=== PATIENT | male | born 1955 | race Caucasian/White ===

== ENCOUNTER 2021-07-14 11:26 | Outpatient (CLI) | payer BC, SELFPAY ==
[2021-07-14 13:09] LABS: Basophils Percent Auto 0.5 % (0.2-1.2); Eosinophils Absolute Auto 0.1 K/mm3 (0-0.3); Eosinophils Percent Auto 2.2 % (0-4.4); Hemoglobin 13.4 g/dL (14.0-18.0); Immature Granulocyte Absolute 0.01 K/mm3 (0.00-0.031); Immature Granulocyte Percent A 0.2 % (0-0.5); Lymphocytes Absolute Auto 2.19 K/mm3 (0.9-3.2); Lymphocytes Percent Auto 34.4 % (18.3-44.2); Mean Corpuscular HGB Conc 34.4 g/dl (32-36); Mean Corpuscular Hemoglobin 31.5 pg (26-34); Mean Corpuscular Volume 91.5 fl (80-100); Mean Platelet Volume 9.4 fl (7.4-10.4); Monocytes Absolute Auto 0.6 K/mm3 (0.1-0.6); Monocytes Percent Auto 8.9 % (2.6-8.5); Neutrophils Absolute Auto 3.4 K/mm3 (1.3-6.7); Neutrophils Percent Auto 53.8 % (45.5-73.1); Platelet Count Result 236 k/mm3 (150-375); Red Blood Count 4.26 M/mm3 (4.6-6.20); Red Cell Distribution Width 12.7 % (11.5-14.5); White Blood Count 6.4 K/mm3 (4.5-10.0)
[2021-07-14 13:18] LABS: Hemoglobin A1C 5.2 % (<5.7)
[2021-07-14 13:26] LABS: Albumin Level 4.6 g/dL (3.5-5.1); Anion Gap 10 mmol/L (8-16); Blood Urea Nitrogen 19 mg/dL (9-20); Calcium 9.2 mg/dL (8.4-10.2); Carbon Dioxide 24 mmol/L (22-30); Chloride 105 mmol/L (98-107); Estimated Glomerular Filt Rate > 60; Glucose 94 mg/dL (65-110); Potassium 4.1 mmol/L (3.4-5.0); Sodium 139 mmol/L (137-145)
[2021-07-14 13:56] LABS: Urine Cotinine NEGATIVE
== END 2021-07-14 11:27 | disposition home or self-care (01) ==
LOC: ANHSURGERY 11:30
PROVIDERS: PCP Family Medicine; Visit Provider Orthopaedic Surgery
DX: M17.12 Unilateral primary osteoarthritis, left knee (principal); Z01.818 Encounter for other preprocedural examination
CPT/HCPCS: 80048; 80307; 82040; 83036; 85025; 87070

== ENCOUNTER 2021-08-02 02:21 | Day surgery (SDC) | payer BC, SELFPAY ==
[2021-07-14 11:35] VITALS: BMI 37.8
--- NOTE | 2021-07-14 12:01 | PC.NURSE ---
Addendum entered by Kristin Childress RN 07/14/21 12:13: IBUPROFEN HOLD 7 DAYS PRE OP Original Note: Report to the Outpatient Waiting Room, entrance under the green pavilion located off [facility], at time _0600 on date 07/28/21 . OR Time: _0730 . - You and your visitor will be asked a series of questions to screen for COVID 19 for your protection. - A mask is required within the hospital. - Only one visitor is allowed at this time. Patient visitors will be guided where to wait when not with patient. Preoperative COVID Testing Requirements: No COVID Test needed if: (proof is required; if not received patient will have Rapid Test prior to entry) - Patient has received COVID Vaccine at least 14 days prior to procedure date or - Patient has positive COVID test result within last 90 days of surgery date. COVID Test needed if above criteria is not met If not COVID vaccinated a COVID test must be conducted within 72 hours of surgery and patient is asked to isolate self from time of testing until procedure. You will go to the [facility] for your COVID testing. The [facility] site is located at the corner of [address] [facility]. You will only be called if COVID results are positive and your surgeon may reschedule your elective surgery date. Patients may have clear liquids (water, carbonated beverages, clear teas, apple juice) until 3 hours prior to surgery with a maximum of 20 ounces. - No food from midnight until time of surgery - Infants may have breast milk until 4 hours before surgery, formula 6 hours prior to surgery. - Children will be allowed to drink immediately following surgery. If applicable, please bring a bottle or sippy cup to assist with drinking. Juice, water, soda, and popsicles are readily available. For infants on formula, please bring formula the day of surgery. Pacifiers are allowed. Take the following medications with a SIP of water the morning of surgery: ___NONE Medications to discontinue per physician _ALL VITAMINS AND SUPPLEMENT 3 DAYS PRE OP Date to take last dose_07/24/21 Please no make-up, nail kazakh, hairspray, perfume, deodorant, or body powder the day of surgery. No jewelry (including any body piercings) or valuables the day of surgery, leave them at home. Please take a shower or bath the night before, or the morning of, surgery with an antibacterial soap. Wear comfortable, loose fitting clothing. Children are encouraged to wear pajamas. - Jewelry must be removed prior to entering the operating room. Rings and piercings that are not removed may be cut off. - The hospital will not accept responsibility for valuables. - Please leave all valuables, including medications, at home the day of surgery. If you are going home after surgery, a licensed cdl truck driver must drive you home. - NO public transportation without another adult. - We recommend that an adult stay with you for 24 hours following discharge. - We also recommend that you do not drive, make important decision, drink alcoholic beverages, or take any drugs that were not prescribed by your health care provider for at least 24 hours after your discharge time. For Pediatric surgeries, we recommend two adults accompany the child home (only one inside the building at this time). Follow any additional instructions given to you from your surgeon. Telephone instructions given to _PATIENT and asked if any additional questions and then verbalized understanding. Patient advised to call surgeon office or pre surgery nurse liaison [phone] if any additional questions.
[2021-07-14 12:26] VITALS: BP 143/64; PULSE 57; RESP 16; TEMP 36.9; O2SAT 98
--- NOTE | 2021-07-26 14:06 | PM.IMHP ---
H&P: HPI History of Present Illness Date/Time: 07/26/21 14:06 66-year-old male patient of Dr. Antoine who presents today for a left total knee arthroplasty. He underwent right total knee arthroplasty in 2019. He had excellent results and is very happy with the way his knee is feeling. He has been having symptoms in left knee for about 10 years. He has had prior cortisone injections as well as bracing which has not given him satisfactory relief. Patient feels this point we proceed with total knee arthroplasty rather continue nonsurgical treatment. Chief Complaint: Left knee DJD Review of Systems Review of Systems: All systems reviewed & are unremarkable except as noted in HPI and below PMFSH Past Medical History Medical History Family history of carotid artery stenosis Obstructive sleep apnea Surgical History Surgical History History of knee surgery History of repair of rotator cuff Family History Family History Mother Family history of alcoholism Father Cerebrovascular accident Family history of throat cancer Social History Social History Smoking packs per day: 1 Smoking cigarettes per day: 20.0 Years smoked: 30 Smoking pack-years: 30.00 Smoking status: Former smoker Tobacco type: cigarettes Smoking end date: 03/28/21 Additional smoking assessment comments: PAST 5 YEARS SMOKED 5 CIGARETTES PER DAY .DENIES ANY FORM OF TOBACCO USE Spiritual care concerns: No Meds Home Medications and Allergies Home Medications Medication Instructions Recorded Confirmed Type ibuprofen 600 mg PO Q6H PRN 07/14/21 07/14/21 History potassium 99 mg PO PRN PRN 07/14/21 07/14/21 History vitamin B complex [Super B Complex] 1 cap PO DAILY 07/14/21 07/14/21 History Allergies Allergy/AdvReac Type Severity Reaction Status Date / Time No Known Allergies Allergy Verified 07/14/21 11:36 Exam Narrative: 66-year-old male alert pleasant. He is 5 ft 8 and 255 lb. His BMI is 30.8. Left knee range of motion is from 15-105 degrees. Mild effusion. Walks without obvious limp. Minimal tenderness about the left knee. Hip range is full without discomfort on left. Negative Stinchfield maneuver. 1+ pretibial edema bilaterally. He has some venous stasis skin changes in both lower extremities. Reports slight tingling in the bottoms of both feet which she noticed in the last 3 or 4 years. 2+ dorsalis pedis and posterior tibial artery pulse. Resp: Auscultation: clear to auscultation bilaterally Cardio: Rate: regular rate Rhythm: regular rhythm Assessment and Plan Additional Plan 66-year-old male who has severe medial compartment arthritis left knee. Is very happy with his right total knee done in 2019. He feels this point he is ready proceed the left. Surgical procedure as well as the risks and complications were discussed in detail all questions were answered we will see. Patient will see his primary care doctor for pre-surgical clearance. He has also seen Dr. Freire a irrigation district manager. He has been cleared without additional testing. Patient has recently quit smoking in the last several months. He did have a negative cotinine test. But his nasal swab was negative. Hemoglobin is 13.4 platelets 236. Chem panel is all within normal limits, creatinine 0.90. We will plan to use Eliquis for 2 weeks followed by baby aspirin for DVT prophylaxis. We will use extended antibiotics postoperatively due to his weight and recent history of quitting smoking.
--- NOTE | 2021-07-27 13:57 | SUR.PREOP ---
patient contacted by Natalie from Dr Torrez's office and informed case cancelled for 07/28/2021 and was given new surgery date and time
--- NOTE | 2021-07-28 08:18 | PC.NURSE ---
Report to the Outpatient Waiting Room, entrance under the green pavilion located off [facility], at time __0600 on date __08/02/21 . OR Time: 729 . - You and your visitor will be asked a series of questions to screen for COVID 19 for your protection. - A mask is required within the hospital. - Only one visitor is allowed at this time. Patient visitors will be guided where to wait when not with patient. Preoperative COVID Testing Requirements: No COVID Test needed if: (proof is required; if not received patient will have Rapid Test prior to entry) - Patient has received COVID Vaccine at least 14 days prior to procedure date or - Patient has positive COVID test result within last 90 days of surgery date. COVID Test needed if above criteria is not met If not COVID vaccinated a COVID test must be conducted within 72 hours of surgery and patient is asked to isolate self from time of testing until procedure. You will go to the [facility] Testing Site for your COVID testing. The [facility] site is located at the corner of [address] [facility]. You will only be called if COVID results are positive and your surgeon may reschedule your elective surgery date. Patients may have clear liquids (water, carbonated beverages, clear teas, apple juice) until 3 hours prior to surgery with a maximum of 20 ounces. - No food from midnight until time of surgery - Infants may have breast milk until 4 hours before surgery, formula 6 hours prior to surgery. - Children will be allowed to drink immediately following surgery. If applicable, please bring a bottle or sippy cup to assist with drinking. Juice, water, soda, and popsicles are readily available. For infants on formula, please bring formula the day of surgery. Pacifiers are allowed. Take the following medications with a SIP of water the morning of surgery: ____NONE Medications to discontinue per physician ____IBUPROFEN 7 DAYS PRE OP AND VITAMINS 3 DAYS PRE OP Date to take last dose__IBUPROFEN 07/27/21 AND VITAMINS 07/29/21 Please no make-up, nail sami, hairspray, perfume, deodorant, or body powder the day of surgery. No jewelry (including any body piercings) or valuables the day of surgery, leave them at home. Please take a shower or bath the night before, or the morning of, surgery with an antibacterial soap. Wear comfortable, loose fitting clothing. Children are encouraged to wear pajamas. - Jewelry must be removed prior to entering the operating room. Rings and piercings that are not removed may be cut off. - The hospital will not accept responsibility for valuables. - Please leave all valuables, including medications, at home the day of surgery. If you are going home after surgery, a licensed restaurant delivery driver must drive you home. - NO public transportation without another adult. - We recommend that an adult stay with you for 24 hours following discharge. - We also recommend that you do not drive, make important decision, drink alcoholic beverages, or take any drugs that were not prescribed by your health care provider for at least 24 hours after your discharge time. For Pediatric surgeries, we recommend two adults accompany the child home (only one inside the building at this time). Follow any additional instructions given to you from your surgeon. Telephone instructions given to __PATIENT and asked if any additional questions and then verbalized understanding. Patient advised to call surgeon office or pre surgery nurse liaison [phone] if any additional questions.
[2021-08-02] VITALS (13 sets, daily range): BP systolic 105–147; BP diastolic 48–67; PULSE 52–80; RESP 10–22; TEMP 35.9–36.8; O2SAT 93–100; BMI 38.2; BMI 38.1
--- NOTE | ~2021-08-02 | XR_ITS ---
EXAMINATION: XR knee LT 2V DATE: 08/02/2021 11:12 INDICATION: Postoperative evaluation following left total knee arthroplasty. TECHNIQUE: Anteroposterior and lateral views of the left knee were obtained. COMPARISON: None. FINDINGS: Left total knee arthroplasty with patellar resurfacing appears well seated and in near anatomic align ment. No fractures identified. Expected postoperative subcutaneous, intramedullary and intra-articul ar gas. IMPRESSION: 1. Left total knee arthroplasty, negative for postoperative purposes. Reviewed, dictated and finalized at location B. [facility]
[2021-08-02] MEDS: ACETAMINOPHEN 500 MG TABLET 1000 MG PO ×2 (06:29→17:10)
--- NOTE | 2021-08-02 06:59 | P.PNAN_ITS ---
Anes - Initial Pre Proc Eval Procedure: Operation Date: 08/02/21 07:30 Proposed Procedures p Left Total Knee Arthroplasty - Joseph Torrez MD Date/Time: 08/02/21 06:59 Surgeon: Joseph Torrez MD Pre Op Diagnosis: OA left knee Patient Data Age: 66 Gender: M Height: 1.75 m Weight: 116.2 kg Last Vital Signs Temp 36.9 C 07/14/21 12:26 Pulse 57 L 07/14/21 12:26 Resp 16 07/14/21 12:26 BP 143/64 H 07/14/21 12:26 Pulse Ox 98 07/14/21 12:26 Allergies Allergy/AdvReac Type Severity Reaction Status Date / Time No Known Allergies Allergy Verified 08/02/21 06:24 Home Medications Medication Instructions Recorded Confirmed Type ibuprofen 600 mg PO Q6H PRN 07/14/21 08/02/21 History potassium 99 mg PO PRN PRN 07/14/21 08/02/21 History vitamin B complex [Super B Complex] 1 cap PO DAILY 07/14/21 08/02/21 History Patient hx anesthesia problems: none Family hx anesthesia problems: none Results Review: All pre-operative results and documents have been reviewed as part of the pre-operative evaluation. FORMERLY [facility], [facility] Past Medical History Medical History Family history of carotid artery stenosis Obstructive sleep apnea Surgical History Surgical History History of knee surgery History of repair of rotator cuff Family History Family History Mother Family history of alcoholism Father Cerebrovascular accident Family history of throat cancer Social History Social History Smoking packs per day: 1 Smoking cigarettes per day: 20.0 Years smoked: 30 Smoking pack-years: 30.00 Smoking status: Former smoker Tobacco type: cigarettes Smoking end date: 03/28/21 Additional smoking assessment comments: PAST 5 YEARS SMOKED 5 CIGARETTES PER DAY .DENIES ANY FORM OF TOBACCO USE Living arrangements: with family Spiritual care concerns: No Anes - Eval Final PreProcedure Day of Procedure 08/02/21 06:59 Patient weight: obese Heart: regular rate and rhythm Lungs: decreased breath sounds Airway: Mallampati scale class II Neurological: alert and oriented Last oral intake: >/= 8 hours ASA classification: III Emergent: no Anesthetic plan: proceed Anesthesia type and monitoring: general LMA and standard monitoring Results Review: All pre-operative results and documents have been reviewed as part of the pre-operative evaluation. Informed Consent: The patient's anesthetic plan and its attendant risks and benefits were discussed with the patient/family/POA. Questions were solicited and answers provided to the satisfaction of the patient/family/POA.
[2021-08-02] MEDS: TRANEXAMIC ACID 1,000MG/ISO100 1,000 MG/100 ML BAG 200 MG IVPB (07:01)
[2021-08-02] MEDS: LACTATED RINGERS 1,000 ML 30 ML IV CONT ×2 (07:08→12:00)
--- NOTE | 2021-08-02 07:16 | WPDHPUPDATE1 ---
History and Physical Update Update Date/Time: 08/02/21 07:16 History and Physical has been reviewed, including an updated exam of the patient. There are NO changes in the patient's condition. Risks, benefits, and alternatives have been discussed and questions answered. Patient agrees to proceed with procedure.
[2021-08-02] MEDS: ceFAZolin 2 GM/D5W 50 ML 2 GM/50 ML BAG IVPB (07:28)
[2021-08-02] MEDS: ceFAZolin SODIUM 1 GM VIAL 3 GM IRRIGATION (08:11)
[2021-08-02] MEDS: TRANEXAMIC ACID 1,000 MG/10 ML AMPUL 1000 MG IV PUSH (10:10)
[2021-08-02] MEDS: ceFAZolin SODIUM 1 GM VIAL 2 GM IV PUSH (10:23)
--- NOTE | 2021-08-02 10:53 | W.PM.PROC2 ---
Procedure Note - Detailed Date of Procedure 08/02/21 Pre-op Diagnosis OA left knee Post-op Diagnosis same Procedure Performed Left total knee arthroplasty Surgeon Joseph Torrez MD Cad Technician Alexx Anesthesia general Description of Procedure Patient was brought to the operating room and general anesthesia was administered. There is extra difficulty with the procedure due to his obesity with BMI 38.3 and severe flexion contracture of 15? under anesthesia. These factors added at least 30 minutes a time to the procedure. Was also noteworthy that his bone seemed disproportionately soft for a 66-year-old obese male and we will check a bone density test and vitamin-D level and start him on calcium . Patient was given 2 g Ancef 1 g of tranexamic acid weight based vancomycin. Limb was exsanguinated tourniquet elevated to 300 mmHg. A 7 in longitudinal incision was made a standard parapatellar arthrotomy was utilized. Infrapatellar and suprapatellar fat pads were excised a quadriceps synovectomy carried out. Osteophytes removed from around the patella which measured 25 mm in thickness and was cut to 17 mm. Bone quality was fairly good. Next a guide brien was inserted down the femoral canal after aspiration of canal contents using the 5 degree valgus cutting bushing 10 mm of bone removed the distal femur. Next the tibial plateau was cut. We tried to make a skim cut off the low point of the medial tibial plateau. The tibial cut was made perpendicular to the axis of the tibia. As he did not have a significant varus deformity, no additional releases were performed. The knee was quite tight in extension. At 90? of flexion the medial side was a tight 8 mm the lateral side 12 mm. The femoral sizing drill guide was applied and rotation set at 5? of external rotation which matched Whitesides line and posterior referencing pin was replaced. 72.5 cutting block was applied the size he had on the other side and the anterior cut was too far off the anterior cortex and we immediately dropped down to a size 70. AP and chamfer cuts were made. Bone quality was only fair. Seventy fit well was with the appropriate width medial to lateral as well and the knee accepted the 10 mm CR insert in flexion with equal gaps at 90? from the medial compared to lateral sides. The tibia was exposed and I could see that we had not quite cut through the articular cartilage in the posterior aspect of the medial tibial plateau and therefore an additional 1/2 mm of bone approximately was removed from the tibial plateau. We then carefully ensured that the cut was flat tumors no locking on the tray applied the surface. We initially tried the size 79 vanguard tibia but it was too wide at the proper rotational alignment. The 75 was chosen and this was rotated properly relative the medial 1/3 of the tibial tubercle anterior cortex of the tibia and the 2nd metatarsal and this was punched. We trialed and the 11 seemed appropriate with the at 90? but we lacked 20? of extension with no mediolateral play. An additional 2 mm of bone was removed the distal femur and chamfer cuts revisit posterior femoral osteophyte was removed medially and laterally from the femoral condyles and a generous central posterior capsule release was performed. With this done, trialing the 11 insert, the knee still lacked fiber 6? of extension. There was about a mm or 2 of play medially and laterally in this position. The therefore an additional 2 mm of bone removed the distal femur chamfer cuts revisited and with this done the knee came out to full extension with the 11 insert with a negative bounce. The 11 had appropriate stability at 90? the with some play. I felt this would likely be the size that we would choose. We put the tourniquet down at 90 minutes. The patella was sized to the 34. The 37 would overhang either superiorly or inferiorly. The 34 was drilled and a 34 thin composite thickness was 25 mm. Patellar t
[2021-08-02 12:28] LABS: Glucose Point of Care 163 mg/dl (65-105)
--- NOTE | 2021-08-02 12:33 | SUR.PHASEI ---
[id number] sbar faxed floor notified
--- NOTE | 2021-08-02 13:01 | PCOTNOTE ---
Attempted OT evaluation, patient not to room yet, will follow and attempt at later time.
[2021-08-02] MEDS: ONDANSETRON INJ 4 MG/2 ML VIAL IV PUSH ×2 (14:58→18:21)
[2021-08-02] MEDS: oxyCODONE HCL (*CRX) 5 MG TAB IR PO ×3 (15:03→20:02)
[2021-08-02] MEDS: ERGOCALCIFEROL 50,000 UNIT CAPSULE 50000 UNITS PO (16:16)
[2021-08-02] MEDS: SENNA/DOCUSATE SODIUM TABLET 2 TAB PO (16:16)
[2021-08-02] MEDS: WATER FOR IRRIGATION, STERILE 1,000 ML BOTTLE 1000 ML (18:21)
[2021-08-02] MEDS: FAMOTIDINE 20 MG TABLET PO (20:02)
[2021-08-03] MEDS: oxyCODONE HCL (*CRX) 5 MG TAB IR PO ×4 (00:14→12:28)
[2021-08-03] MEDS: ACETAMINOPHEN 500 MG TABLET 1000 MG PO ×3 (00:14→11:27)
[2021-08-03 04:32] VITALS: BP 119/46; PULSE 68; RESP 20; TEMP 36.6; O2SAT 98
--- NOTE | 2021-08-03 06:13 | PM.PNORT ---
Subjective Subjective Date/Time Seen: 08/03/21 06:13 Postop day 1 patient is alert afebrile vital signs are stable. Labs are pending. Patient a bout of vomiting when he 1st got up to the floor yesterday. He has had no vomiting overnight. No nausea this morning. Pain is well controlled. Dressing is intact and dry. Neurovascular is intact. He was up walking with therapy yesterday and has made several trips to the restroom overnight comfortable with ambulation. We will plan to have therapy work with the patient today and plan to discharge home either later this morning or this afternoon. Patient thinks he may want to stay till afternoon therapy is done to make sure that he continues do well. Objective Data Vital Signs Vital Signs: Vital Signs - 24 hr 08/02/21 07:09 08/02/21 11:30 08/02/21 11:45 Temperature 36.7 C Pulse Rate 55 L 66 66 Respiratory Rate 18 13 18 Blood Pressure 111/54 L 117/53 L 113/58 L Pulse Oximetry 99 99 100 08/02/21 12:00 08/02/21 12:15 08/02/21 12:30 Temperature Pulse Rate 62 60 57 L Respiratory Rate 13 12 10 L Blood Pressure 113/48 L 105/51 L 121/54 L Pulse Oximetry 99 96 93 08/02/21 12:45 08/02/21 13:20 08/02/21 13:35 Temperature 35.9 C L 36.7 C Pulse Rate 65 52 L 56 L Respiratory Rate 15 16 16 Blood Pressure 115/56 L 147/57 H 131/67 Pulse Oximetry 99 96 97 08/02/21 14:05 08/02/21 14:11 08/02/21 15:05 Temperature 36.2 C L 36.3 C L Pulse Rate 56 L 60 Respiratory Rate 16 18 Blood Pressure 139/65 112/57 L Pulse Oximetry 96 93 94 08/02/21 20:38 08/03/21 04:32 Temperature 36.8 C 36.6 C Pulse Rate 80 68 Respiratory Rate 22 H 20 Blood Pressure 110/51 L 119/46 L Pulse Oximetry 96 98 Intake/Output Intake/Output: Intake & Output 07/31/21 08/01/21 08/02/21 08/03/21 23:59 23:59 23:59 23:59 Intake Total 1830 290 Output Total 350 800 Balance 1480 -510 Meds/Results Medications: Active Medications Generic Name Dose Route Start Last Admin Trade Name Freq PRN Reason Stop Dose Admin Acetaminophen 1,000 mg 08/02/21 18:00 08/03/21 05:16 Acetaminophen 500 Mg Tablet PO 1,000 mg Q6H ANTONIA Administration Apixaban 2.5 mg 08/03/21 09:00 Apixaban 2.5 Mg Tablet PO 08/14/21 21:01 Q12HR ANTONIA Bisacodyl 10 mg 08/02/21 12:53 Bisacodyl 10 Mg Suppository RECTAL DAILY PRN Constipation Celecoxib 200 mg 08/03/21 09:00 Celecoxib 200 Mg Capsule PO DAILY ANTONIA Cephalexin HCl 500 mg 08/03/21 12:00 Cephalexin 500 Mg Capsule PO Q6HR ANTONIA Diphenhydramine HCl 25 mg 08/02/21 12:53 Diphenhydramine Hcl Inj 50 Mg/Ml Vial IV PUSH Q6H PRN Itching Ergocalciferol 50,000 unit 08/02/21 15:40 08/02/21 16:16 Ergocalciferol 50,000 Unit Capsule PO 50,000 unit Mo@0900 ANTONIA Administration Famotidine 20 mg 08/02/21 21:00 08/02/21 20:02 Famotidine 20 Mg Tablet PO 20 mg Q12HR ANTONIA Administration Vancomycin HCl 1,000 mg in 250 mls @ 250 mls/hr 08/02/21 19:00 08/02/21 21:01 Vancomycin 1,000 Mg/D5w 250 Ml IVPB 08/03/21 07:59 Infused Q12H ANTONIA Infusion Cefazolin Sodium 1 gm in 50 mls @ 100 mls/hr 08/02/21 15:00 08/02/21 23:32 Ancef 1 Gm/D5w 50 Ml Pm IVPB 08/03/21 07:29 Infused Q8H ANTONIA Infusion Magnesium Hydroxide 30 ml 08/02/21 12:53 Magnesium Hydroxide Susp 30 Ml Udc PO BID PRN Constipation Naloxone HCl 0.1 mg 08/02/21 12:53 Naloxone Hcl 0.4 Mg/Ml Vial IV PUSH Q2M PRN Opiate Reversal Ondansetron HCl 4 mg 08/02/21 12:53 08/02/21 18:21 Ondansetron Inj 4 Mg/2 Ml Vial IV PUSH 4 mg Q4H PRN Administration Nausea And Vomiting Oxycodone HCl 5 mg 08/02/21 12:53 Oxycodone Hcl (*Crx) 5 Mg Tab Ir PO Q4H PRN Pain Rated 4-6 Oxycodone HCl 5 mg 08/02/21 13:00 08/03/21 05:16 Oxycodone Hcl (*Crx) 5 Mg Tab Ir PO 5 mg Q4HR ANTONIA Administration Polyethylene Glycol 17 gm 08/03/21 09:00 Polyethylene Glycol 3350 17 Gm Stacy.Marciano
--- NOTE | 2021-08-03 06:15 | PM.DS ---
DS: Admitting Diagnosis Discharge Date 08 03 Admitting Diagnosis left knee DJD DS: Summary Hospital Course Hospital Course: stable Time Spent with Patient Time attestation: Total time spent providing and/or coordinating discharge services: 66-year-old male who underwent left total knee arthroplasty on 08/02. Underwent the procedure without any complications. He did have a bout of vomiting once he got to the floor on the day of surgery. This did pass. He did receive pain medication on empty stomach which may have been the reason or this could have been postanesthesia vomiting. He had had no additional bouts of vomiting after the initial 1. His bones were little soft at times surgery we did order a vitamin D 25 hydroxy.. Morning labs were not done at time of dictation . We will check on vitamin-D as well as labs prior to his discharge. He has a Mepilex dressing over his knee he is weight-bearing as tolerated. He is on Eliquis for DVT prophylaxis. His pain is well controlled on scheduled Tylenol as well as oxycodone 5 mg. He is also on Celebrex 200 mg daily. He is on Senokot and MiraLax for constipation. He will also go home on a 2 week course of Keflex. Patient was advised to keep leg elevated but does exercise on a regular basis. His outpatient therapy starting in [facility] on Monday. The knee was advise any questions or concerns to call the office otherwise we will see him at his appointment date. DS: Data Data Completed and Pending Labs on day of discharge: Labs from last 24 hours 08/02/21 08/02/21 12:15 07:21 POC Capillary Glucose 163 H Blood Type O Positive Antibody Screen Negative Discharge Plan Discharge Patient Disposition: Home, Self-Care Discharge Instructions: JOSEPH TORREZ M.D [facility] [address] [address] POST-OPERATIVE DISCHARGE INSTRUCTIONS TOTAL KNEE ARTHROPLASTY 1. When resting, lie on back with leg elevated above hear to minimize swelling. Significant swelling could indicate a blood clot and if this occurs call the office (or go to the ER) to have a venous ultrasound. 2. Do exercise 5 times a day. 3. Do not sit with leg down except for meals. 4. Wound Care: Nursing will give additional dressings at discharge. Patient to change dressing at home 1 week from surgery, then maintain until seen in office. 5. May shower with dressing in place. 6. patient should limit sitting in a chair with leg hanging down to 20 minutes at a time 4 times a day. Stand Alone Forms: General Discharge Instructions Follow-up/Referrals: Joseph Torrez MD [Physician] - Keep Reg. Scheduled Appt. Discharge Medications: New acetaminophen 500 mg Tablet 1,000 mg PO Q6H Qty: 90 RF: 0 Eliquis 2.5 mg Tablet 2.5 mg PO Q12HR Qty: 27 RF: 0 celecoxib [Celebrex] 200 mg Capsule 200 mg PO DAILY Qty: 30 RF: 0 sennosides-docusate sodium [Senokot-S] 8.6-50 mg Tablet 2 tab-cap PO BID Qty: 60 RF: 0 cephalexin 500 mg Capsule 500 mg PO Q6HR Qty: 44 RF: 0 polyethylene glycol 3350 [Miralax] 17 gram Powder In Packet 17 g PO QAM Qty: 30 RF: 0 ergocalciferol (vitamin D2) [Vitamin D2] 1,250 mcg (50,000 unit) Capsule 50,000 unit PO Mo@0900 Qty: 8 RF: 0 oxycodone 5 mg Tablet 5 mg PO Q4HR Qty: 40 RF: 0 Continued vitamin B complex Capsule 1 cap PO DAILY RF: 0 Discontinued potassium 99 mg Tablet 99 mg PO PRN PRN (Reason: LEG CRAMPS) RF: 0 ibuprofen 600 mg Tablet 600 mg PO Q6H PRN (Reason: Pain) RF: 0
[2021-08-03 06:50] LABS: Basophils Percent Auto 0.1 % (0.2-1.2); Eosinophils Percent Auto 0.3 % (0-4.4); Hematocrit 33.3 % (42.0-52.0); Hemoglobin 11.3 g/dL (14.0-18.0); Immature Granulocyte Absolute 0.03 K/mm3 (0.00-0.031); Immature Granulocyte Percent A 0.3 % (0-0.5); Lymphocytes Absolute Auto 1.76 K/mm3 (0.9-3.2); Lymphocytes Percent Auto 15.5 % (18.3-44.2); Mean Corpuscular HGB Conc 33.9 g/dl (32-36); Mean Corpuscular Hemoglobin 31.1 pg (26-34); Mean Corpuscular Volume 91.7 fl (80-100); Mean Platelet Volume 9.4 fl (7.4-10.4); Monocytes Absolute Auto 1.4 K/mm3 (0.1-0.6); Neutrophils Absolute Auto 8.2 K/mm3 (1.3-6.7); Neutrophils Percent Auto 71.8 % (45.5-73.1); Platelet Count Result 198 k/mm3 (150-375); Red Blood Count 3.63 M/mm3 (4.6-6.20); Red Cell Distribution Width 12.5 % (11.5-14.5); White Blood Count 11.4 K/mm3 (4.5-10.0)
[2021-08-03 07:10] LABS: Blood Urea Nitrogen 25 mg/dL (9-20); Calcium 8.3 mg/dL (8.4-10.2); Carbon Dioxide 26 mmol/L (22-30); Chloride 99 mmol/L (98-107); Estimated CRCL calculation 75 ml/min; Estimated Glomerular Filt Rate > 60; Glucose 137 mg/dL (65-110); Potassium 3.9 mmol/L (3.4-5.0)
[2021-08-03 07:26] LABS: Anion Gap 9 mmol/L (8-16); Sodium 134 mmol/L (137-145)
[2021-08-03 08:15] LABS: Vitamin D 25 Hydroxy 21.7 ng/mL
[2021-08-03] MEDS: APIXABAN 2.5 MG TABLET PO (09:50)
[2021-08-03] MEDS: polyethylene glycoL 3350 17 GM POWD.PACK PO (09:51)
[2021-08-03] MEDS: FAMOTIDINE 20 MG TABLET PO (09:51)
[2021-08-03] MEDS: CELECOXIB 200 MG CAPSULE PO (09:51)
[2021-08-03] MEDS: SENNA/DOCUSATE SODIUM TABLET 2 TAB PO (09:51)
[2021-08-03 09:53] VITALS: RESP 20; O2SAT 98
[2021-08-03] MEDS: CEPHALEXIN 500 MG CAPSULE PO (11:27)
== END 2021-08-03 13:10 | disposition home or self-care (01) ==
LOC: ANHSURGERY 06:10 → ANH2MED 12:57
PROVIDERS: Physician Assistant Surgical; PCP Family Medicine; Visit Provider Orthopaedic Surgery
PROC: (CPT 27447; principal; 2021-08-02 07:30)
DX: M17.12 Unilateral primary osteoarthritis, left knee (principal); G47.33 Obstructive sleep apnea (adult) (pediatric); Z87.891 Personal history of nicotine dependence; E66.9 Obesity, unspecified; Z68.38 Body mass index [BMI] 38.0-38.9, adult; Z79.899 Other long term (current) drug therapy
CPT/HCPCS: 27447; 36415; 73560; 80048; 82306; 82948; 85025; 86850; 86900; 86901; 97110; 97116; 97161; 97165; 97530; 97535; A9270; C1713; C1776; J0171; J0690; J1100; J1885; J2250; J2270; J2405; J2704; J2795; J3010; J3370; J7120